=== PATIENT | female | born 1985 | race Caucasian/White ===

== ENCOUNTER 2024-04-09 08:08 | Day surgery (SDC) | payer BC ==
[2024-04-05 15:37] LABS: BASOPHILS # (AUTO) 0.1 X10'3 (0-0.2); BASOPHILS % (AUTO) 0.6 % (0-1); EOSINOPHILS # (AUTO) 0.1 X10'3 (0-0.9); EOSINOPHILS % (AUTO) 0.6 % (0-6); HEMATOCRIT 38.5 % (35.0-45.0); HEMOGLOBIN 12.9 g/dl (12.0-16.0); LYMPHOCYTES # (AUTO) 1.5 X10'3 (1.1-4.8); LYMPHOCYTES % (AUTO) 17.2 % (21-51); MEAN CORPUSCULAR HGB CONC 33.4 g/dL (33.0-36.5); MEAN CORPUSCULAR VOLUME 86.9 FL (78-98); MONOCYTES # (AUTO) 0.5 X10'3 (0-0.9); NEUTROPHILS # (AUTO) 6.9 X10'3 (1.8-7.7); NEUTROPHILS % (AUTO) 76.6 % (42-75); PLATELET COUNT 209 X10'3 (140-440); RED BLOOD COUNT 4.43 X10'6 (4.20-5.60); RED CELL DISTRIBUTION WIDTH 12.9 % (11.5-14.5)
[2024-04-05 15:47] LABS: ALANINE AMINOTRANSFERASE 16 U/L (12-78); ALBUMIN/GLOBULIN RATIO 1.3 (1.1-1.5); ALKALINE PHOSPHATASE 52 IU/L (46-116); ANION GAP 7 (8-16); ASPARTATE AMINO TRANSFERASE 18 U/L (10-37); BILIRUBIN,TOTAL 0.4 MG/DL (0.1-1.0); BLOOD UREA NITROGEN 8 MG/DL (7-18); BUN/CREATININE RATIO 10.7 (10.0-20.0); CALCIUM 9.3 MG/DL (8.5-10.1); CHLORIDE 103 MMOL/L (99-107); CREATININE 0.75 MG/DL (0.40-0.90); GLUCOSE 88 MG/DL (70-104); POTASSIUM 3.9 MMOL/L (3.5-5.1); SODIUM 136 MMOL/L (135-145); TOTAL CARBON DIOXIDE 26.4 MMOL/L (24-32); TOTAL PROTEIN 7.2 G/DL (6.4-8.2); eGFR 86 ML/MIN
[2024-04-05 16:00] LABS: HCG SERUM QL NEGATIVE
[~2024-04-09] VITALS: Ht 170.2 cm; Wt 55.3 kg
[2024-04-09] VITALS (11 sets, daily range): BP systolic 91–131; BP diastolic 63–89; PULSE 69–92; RESP 10–19; TEMP 97.7; O2SAT 96–100
[2024-04-09] MEDS: ceFAZolin 2gm in dextrose, iso 50 ML IV ONE (05:30)
[~2024-04-09 08:08] MED LIST: ALPR-624 PO; ANTIHISTAMINE PO; ASHWAGANDA; B COMPLEX; BUSP7.5T5 PO; CALCIUM MAG ZINC; LOSA50TA64 PO; PROBIOTICS; TUMERIC GINGER; VITAMIN D; VITAMIN E; enalaprilat dihydrate 2.5mg/2ml vial IV PRN; labetalol 20mg/4ml (5mg/ml) syringe IV PRN; meperidine/PF 25mg/ml syringe IV PRN; morphine 2 MG/ML inj. syringe IV PRN; morphine 4 MG/ML inj SYRINge IV PRN; ondansetron/PF 4mg/2ml inj IV PRN; proCHLORperazine 10 MG/2 ml inj IV PRN; ringers solution, lacted 1,000 ML IV SCH
[2024-04-09] MEDS: ringers solution, lacted 1,000 ML IV SCH (08:40)
[2024-04-09] MEDS: famotidine 20mg tablet PO ONE (08:40)
[2024-04-09] MEDS ORDERED: BUPIVAcaine/PF 2.5mg/ml (0.25%) 10ml vial ONE ×2 (09:22→11:14)
[2024-04-09] MEDS ORDERED: LIDOcaine 1% (10mg/ml)w/preservative inj. 20ml MDV ONE ×2 (09:22→11:14)
[2024-04-09] MEDS ORDERED: BUPIVAcaine HCl 0.25%/EPInephrine 1:200,000 inj. 10 ML VIAL ONE (09:29)
[2024-04-09] MEDS ORDERED: sevoflurane 250ml liquid IH ONE (10:12)
[2024-04-09] MEDS ORDERED: midazolam 1 mg/ML 2ml injection ONE (10:16)
[2024-04-09] MEDS ORDERED: fentaNYL/PF 50MCG/1 ML 2ML syringe ONE (10:16)
[2024-04-09] MEDS ORDERED: LIDOcaine 2% (20mg/ml) 5ml vial ONE (10:21)
[2024-04-09] MEDS ORDERED: dexamethasone sod phosphate 4mg/ml inj. ONE (10:21)
[2024-04-09] MEDS ORDERED: propofol inj 20 ML IV ONE (10:21)
[2024-04-09] MEDS ORDERED: acetaminophen 1,000mg/100ml IV 100 ML IV ONE (10:27)
== END 2024-04-09 13:00 | disposition home or self-care (01) ==
LOC: PAS 08:08
PROVIDERS: ATTEND Surgery
DX: R92.8 Other abnormal and inconclusive findings on diagnostic imaging of breast (principal); N60.11 Diffuse cystic mastopathy of right breast; I10 Essential (primary) hypertension; F41.9 Anxiety disorder, unspecified; F32.A Depression, unspecified; Z79.899 Other long term (current) drug therapy; Z98.818 Other dental procedure status
CPT/HCPCS: 19301; 36415; 80053; 82948; 84703; 85025; J0131; J0690; J1100; J2250; J2704; J3010; J3490; J7030; J7120; Z7506; Z7508; Z7512; A4215; A4618; A6449; A7000; J2003; J2405